=== PATIENT | female | born 1995 | race Caucasian/White ===

== ENCOUNTER → 2019-09-23 | Outpatient (CLI) | payer OTHER | LOC: COL.LAB 11:51 | DX: E28.8 Other ovarian dysfunction (principal); N93.8 Other specified abnormal uterine and vaginal bleeding ==

== ENCOUNTER 2020-05-26 11:51 | Inpatient (IN) | payer OTHER ==
[2020-05-26] VITALS (23 sets, daily range): BP systolic 107–157; BP diastolic 57–90; PULSE 83–123; TEMP 98.2–99.6
[~2020-05-26] VITALS: Ht 162.6 cm; Wt 80.0 kg
--- NOTE | 2020-05-26 11:13 | NUR ---
1113-G1PO 39.[address] Nathan ambulatory to unit after feeling SROM at 0800 this am. Reports fluid clear and no vaginal bleeding. Denies decreased movement. Reports contractions every 7 min irregular and states coping well. Assisted into gown and placed on EFM Reactive FHR tracing via EFM. Amnitest neg, SVE 5/80/-2, clear fluid noted. Updatd patient on plan of care. VSS, see flow record. 1125-Dr. Boone notified and orders recieved to admit patient. 1130-INT to right hand, Blood collected and sent to lab per orders and protocol. Assessment complete. Consents reviewed and signed. 1213-IVF started. Patient sitting on edge of bed breathing more with contractions. 1230-Patient off EFM. Up to bathroom and returns to . 1254-Patient requests epidural. IVF bolus started. 1318-Patient back on EFM. 1322-POLLY Weathers to patient room. Patient sitting upright on bedside for epidural placement. 1333-Test dose administered by Breanna Perez CRNA. Patient tolerates well. VSS see flow record. 1340-Patient WL. 1355-Bolaños to DD, clear yellow urine. 1400-SVE 7/90/-1, Repositioned WL with peanutball. Dr. Roque updated.
[2020-05-26 11:46] LABS: BASO % 0.2 % (0.0-2.0); EOS % 0.1 % (0-4.0); GRAN # 11.7 (1.4-6.5); GRAN % 81.3 % (42.2-75.2); HEMOGLOBIN 11.7 g/dl (12.5-16.0); LYMPH # 1.4 (1.2-3.4); MEAN CELL VOLUME 86 fl (80.0-100.0); MEAN CORPUSCULAR HEMOGLOBIN 28 pg (27.0-31.0); MEAN CORPUSCULAR HGB CONC 33 g/dl (33.0-37.0); MEAN PLATELET VOLUME 11.8 fl (7.4-10.4); MONO # 1.1 (0.1-0.6); MONO % 7.4 % (1.7-9.3); PLATELET COUNT 267 K/mm3 (130-400); RED BLOOD COUNT 4.13 M/mm3 (4.10-5.30); REDCELL DISTRIBUTION WIDTH-CV 13.1 % (11.5-14.5)
[2020-05-26 11:51] LABS: HEMATOCRIT 35.5 % (37.0-47.0)
[~2020-05-26 11:51] MED LIST: CYTOMEL 5MC5 MCG/TAB PO; LEVOXYL0.125 MG PO
--- NOTE | 2020-05-26 17:49 | NUR ---
1600-Patient begins pushing with RN at bedside. Patient moves vertex well. 1609-Dr. Boone requested for delivery. 1620-Dr. Boone on unit. Gowned for delivery and begins pushing with patient. 1629-Delivery of head spontaneously by Dr. Rai immediately followed by body. Viable male to mothers abdomen. Cord clamped x2 and cut by FOB. Care of infant assumed by Demi BERGER. Apgars 8/9/9. Second degree and bilateral labial repairs to perineum by MD. 1638-Spontaneous delivery of intact placenta by Dr. Boone Trailing membranes retrieved by MD. Fundal massage firm. Lochia WNL. Pitocin bolus per MD order and protocol. Meaghan care provided. Updated on safety and plan of care.
--- NOTE | 2020-05-26 19:00 | NUR ---
Pt up to the bathroom with standby assist and without complications. Pt was able to void. Meaghan-care done. Pt transferred to room 207 ambulatory. Oriented to room, bed and call light within reach. Plan of care reviewed.
[2020-05-27 00:05] VITALS: BP 106/52; PULSE 92; TEMP 98.7
[2020-05-27 07:52] VITALS: BP 112/7; PULSE 79; TEMP 98.8
[2020-05-27] MEDS ORDERED: IBU800 M1 PO (09:49)
[2020-05-27 15:55] VITALS: BP 126/80; PULSE 92; TEMP 97.7
== END 2020-05-27 19:30 | disposition home or self-care (01) | DRG 807 ==
LOC: LDRO 11:51 → LDR 11:53 → OB 19:13
PROVIDERS: ADMIT Student in an Organized Health Care Education/Training Program
PROC: 10E0XZZ Delivery of Products of Conception, External Approach (ICD-10-PCS; principal; 2020-05-26)
PROC: 0KQM0ZZ Repair Perineum Muscle, Open Approach (ICD-10-PCS; 2020-05-26)
PROC: 0UQMXZZ Repair Vulva, External Approach (ICD-10-PCS; 2020-05-26)
DX: O99.284 Endocrine, nutritional and metabolic diseases complicating childbirth (principal); Z37.0 Single live birth; E03.9 Hypothyroidism, unspecified; E06.3 Autoimmune thyroiditis; O99.344 Other mental disorders complicating childbirth; F41.9 Anxiety disorder, unspecified; O99.62 Diseases of the digestive system complicating childbirth; K21.9 Gastro-esophageal reflux disease without esophagitis; O70.1 Second degree perineal laceration during delivery; O69.81X0 Labor and delivery complicated by cord around neck, without compression, not applicable or unspecified; Z3A.39 39 weeks gestation of pregnancy
CPT/HCPCS: J2590; J7120